=== PATIENT | male | born 1980 | race Caucasian/White ===

== ENCOUNTER 2020-08-08 14:07 | Emergency (ER) | payer MEDICARE, MEDICAID ==
[~2020-08-08] VITALS: Ht 193 cm; Wt 78.1 kg
[~2020-08-08 14:07] MED LIST: ACET325T26 PO; IBUPROFEN; MESA250C PO; MESALAMINE; OLAN15TA3 PO; OLAN5TAB3 PO; RISP3TAB24 PO; TRAZ-175 PO; TRAZ300T2 PO; TRAZADONE; ZYPREXA
--- NOTE | 2020-08-08 14:20 | NUR ---
BIB BY [facility] FROM HOME ON LEGAL 1999- "FAILURE TO CARE FOR SELF" ADMITS TO [facility] YESTERDAY PATIENT HYPERVERBAL/TANGENTIAL. QUICK REPETIVE MOVEMENTS NOTED BREATHALZER BY HEALTH INFORMATION ASSISTANT 0.000
[2020-08-08] MEDS ORDERED: LORazepam 2 MG/ML, 1ML ONE (14:30)
[2020-08-08] MEDS ORDERED: LORazepam 2 MG/ML, 1ML IM ONE (14:30)
[2020-08-08 14:35] LABS: BASOPHILS % (AUTO) 1 % (0-1); EOSINOPHILS % (AUTO) 2 % (1-7); LYMPHOCYTES % (AUTO) 29 % (22-44); MEAN CORPUSCULAR HEMOGLOBIN 31.9 pg (27.5-34.5); MEAN CORPUSCULAR HGB CONC 34.7 g/dL (33.2-36.2); MEAN PLATELET VOLUME 7.1 fL (7.4-10.4); MONOCYTES % (AUTO) 7 % (2-9); NEUTROPHILS % (AUTO) 60 % (42-75); PLATELET COUNT 331 x10^3/uL (130-400); RED BLOOD COUNT 4.16 x10^6/uL (4.38-5.82); RED CELL DISTRIBUTION WIDTH 13.4 % (9.4-14.8)
[2020-08-08 14:38] LABS: MD NO
[2020-08-08 14:47] LABS: ALBUMIN 3.4 g/dL (3.4-5.0); ANION GAP 4 mmol/L (5-15); CALCIUM 8.1 mg/dL (8.5-10.1); CHLORIDE 106 mmol/L (98-107)
[2020-08-08 14:48] LABS: SALICYLATE LEVEL < 1.7 mg/dL (2.8-20.0)
--- NOTE | 2020-08-08 14:48 | NUR ---
MEDICATED PER EMAR FOR REFUSAL TO ALLOW BLOOD DRAW/UA BELONGINGS INVENTORIED PATIENT SHOWERED SELF THEN TRANSPORTED TO ROOM 1 WHERE ROOM CONTROLLED WITH PSYCHIATRIC PRECAUTIONS REPORT TO AICHA MILAN
[2020-08-08 14:49] LABS: CREATININE 1.02 mg/dL (0.7-1.3)
--- NOTE | 2020-08-08 15:04 | NUR ---
report from aaron livingston
[2020-08-08] MEDS ORDERED: OLANZAPINE 10 MG TABLET PO SCH (15:30)
[2020-08-08] MEDS ORDERED: OLANZAPINE 10 MG TABLET ONE (15:36)
--- NOTE | 2020-08-08 15:39 | NUR ---
THROUGHPUT RN: SPOKE W/ JOSEFINAU WHO STATES THEY ARE LOOKING AT PT'S CHART AND WILL LET ER KNOW IF PT IS ACCEPTED OR DECLINED SHORTLY.
--- NOTE | 2020-08-08 15:56 | NUR ---
hilaria aldridge collected and walked to lab
--- NOTE | 2020-08-08 15:57 | NUR ---
pt aware of needing UA, pt has urinal at bedside. pt given SI precatuion food tray. sitter at doorway, all personal belongings placed in locker
--- NOTE | 2020-08-08 17:07 | NUR ---
report given to jelena MILAN. RN aware of needing Ua from pt still. pt updated on poc.
[2020-08-08 17:30] VITALS: BP 109/60
[2020-08-08 18:41] LABS: AMPHETAMINE SCREEN, URINE Positive (Negative); BARBITURATE SCREEN, URINE Negative (Negative); BENZODIAZEPINE SCREEN, URINE Negative (Negative); CANNABINOID SCREEN, URINE Positive (Negative); COCAINE SCREEN, URINE Negative (Negative); METHADONE SCREEN, URINE Negative (Negative); OPIATE SCREEN, URINE Negative (Negative)
[2020-08-08] MEDS ORDERED: LORazepam 1MG TABLET PO PRN (19:00)
[2020-08-08] MEDS ORDERED: HALOPERIDOL 5 MG TABLET PO PRN (19:00)
== END 2020-08-08 17:24 ==
LOC: ED 15:25 → UNDOADMIN 17:28 → 3E 17:28 → ED 17:52
DX: F15.159 Other stimulant abuse with stimulant-induced psychotic disorder, unspecified (principal); Z20.822 Contact with and (suspected) exposure to COVID-19; R44.2 Other hallucinations; F32.2 Major depressive disorder, single episode, severe without psychotic features
CPT/HCPCS: 36415; 80048; 80299; 80307; 80329; 82040; 85025; 87426; 96372; 99285; J2060; G0480

== ENCOUNTER 2020-08-08 16:44 | Inpatient (IN) | payer MEDICARE, MEDICAID ==
[~2020-08-08] VITALS: Ht 193 cm; Wt 77.3 kg
[2020-08-08] MEDS ORDERED: BISACODYL 10 MG SUPP PR PRN (17:00)
[2020-08-08] MEDS ORDERED: ONDANSETRON ODT 4 MG PO PRN (17:00)
[2020-08-08] MEDS ORDERED: DOCUSATE 100 MG CAPSULE PO PRN (17:00)
[2020-08-08] MEDS ORDERED: POLYETHYLENE GLYCOL 17 GM PACKET PO PRN (17:00)
[2020-08-08] MEDS ORDERED: LORazepam 1MG TABLET PO PRN ×2 (17:30→21:00)
[2020-08-08 18:33] LABS: MICROSCOPIC INDICATED
[2020-08-08] MEDS ORDERED: PLEASE ENTER HEIGHT AND WEIGHT MC SCH (19:00)
[2020-08-08] MEDS ORDERED: LORazepam 1MG TABLET ONE (19:48)
[2020-08-09] MEDS: HALOPERIDOL 5 MG TABLET PO PRN ×4 (00:06→21:09)
[2020-08-09 00:27] VITALS: BP 109/60
[2020-08-09] MEDS ORDERED: NICOTINE 14MG/24 HR PATCH.TD24 TD SCH (02:30)
[2020-08-09 07:03] LABS: CHOL/HDL RATIO 2.7; FREE T4 (FREE THYROXINE) 0.94 ng/dL (0.76-1.46); LDL/HDL RATIO 1.4 (0.5-3.0)
[2020-08-09] MEDS: LORazepam 1MG TABLET PO PRN ×3 (07:15→21:09)
[2020-08-09] MEDS: ACETAMINOPHEN 325 MG TABLET PO PRN (07:15)
[2020-08-09] MEDS: OLANZAPINE 5 MG TABLET PO PRN ×2 (07:15→12:21)
[2020-08-09 07:47] VITALS: BP 116/73
[2020-08-09] MEDS: NICOTINE 14MG/24 HR PATCH.TD24 TD SCH (08:42)
[2020-08-09] MEDS ORDERED: ENALAPRIL PO SCH (10:00)
[2020-08-09] MEDS: MESALAMINE 250 MG CAPSULE.ER PO SCH (10:31)
[2020-08-09 19:25] VITALS: BP 116/70
[2020-08-09] MEDS: OLANZAPINE 5 MG TABLET PO SCH (21:09)
[2020-08-09] MEDS: DIVALPROEX 500 MG TABLET.DR PO SCH (21:09)
[2020-08-10] MEDS: MESALAMINE 250 MG CAPSULE.ER PO SCH (07:49)
[2020-08-10] MEDS: HALOPERIDOL 5 MG TABLET PO PRN ×2 (07:49→13:18)
[2020-08-10] MEDS: LORazepam 1MG TABLET PO PRN ×2 (07:49→13:18)
[2020-08-10] MEDS: DIVALPROEX 500 MG TABLET.DR PO SCH ×2 (07:49→20:41)
[2020-08-10] MEDS: OLANZAPINE 5 MG TABLET PO SCH ×2 (07:49→20:41)
[2020-08-10 07:51] VITALS: BP 115/77
[2020-08-10] MEDS: NICOTINE 14MG/24 HR PATCH.TD24 TD SCH ×2 (08:56→18:35)
[2020-08-10 19:36] VITALS: BP 102/60
[2020-08-10] MEDS: ACETAMINOPHEN 325 MG TABLET PO PRN (20:57)
[2020-08-11 08:05] VITALS: BP 100/65
[2020-08-11] MEDS: NICOTINE 14MG/24 HR PATCH.TD24 TD SCH (08:27)
[2020-08-11] MEDS: OLANZAPINE 5 MG TABLET PO SCH ×2 (08:28→21:04)
[2020-08-11] MEDS: MESALAMINE 250 MG CAPSULE.ER PO SCH (08:29)
[2020-08-11] MEDS: HALOPERIDOL 5 MG TABLET PO PRN (08:29)
[2020-08-11] MEDS: DIVALPROEX 500 MG TABLET.DR PO SCH ×2 (08:29→21:05)
[2020-08-11] MEDS: LORazepam 1MG TABLET PO PRN (08:29)
[2020-08-11] MEDS: ACETAMINOPHEN 325 MG TABLET PO PRN (18:06)
[2020-08-11] MEDS ORDERED: ORAJEL 7GM TUBE MM PRN (19:00)
[2020-08-11 19:36] VITALS: BP 113/72
[2020-08-11] MEDS: TRAZODONE 100MG TABLET PO PRN (20:08)
[2020-08-11] MEDS: IBUPROFEN 800 MG TABLET PO PRN (20:32)
[2020-08-12] MEDS: TRAZODONE 100MG TABLET PO PRN ×2 (00:43→00:45)
[2020-08-12] MEDS: DIVALPROEX 500 MG TABLET.DR PO SCH ×2 (07:33→20:40)
[2020-08-12] MEDS: LORazepam 1MG TABLET PO PRN (07:33)
[2020-08-12] MEDS: MESALAMINE 250 MG CAPSULE.ER PO SCH (07:33)
[2020-08-12] MEDS: IBUPROFEN 800 MG TABLET PO PRN ×2 (07:33→17:42)
[2020-08-12] MEDS: NICOTINE 14MG/24 HR PATCH.TD24 TD SCH (07:34)
[2020-08-12] MEDS: OLANZAPINE 5 MG TABLET PO SCH ×2 (07:34→20:39)
[2020-08-12] MEDS: HALOPERIDOL 5 MG TABLET PO PRN (07:34)
[2020-08-12] MEDS ORDERED: DIPHENHYDRAMINE 50 MG CAPSULE ONE (11:47)
[2020-08-12] MEDS ORDERED: LORazepam 1MG TABLET PO ONE (12:00)
[2020-08-12] MEDS ORDERED: DIPHENHYDRAMINE 50 MG CAPSULE PO ONE (12:00)
[2020-08-12] MEDS ORDERED: HALOPERIDOL 5 MG TABLET PO ONE (12:00)
[2020-08-12] MEDS ORDERED: IBUPROFEN 200 MG TABLET ONE (17:26)
[2020-08-12 17:30] VITALS: BP 126/77
[2020-08-13] MEDS: IBUPROFEN 800 MG TABLET PO PRN (08:10)
[2020-08-13] MEDS: DIVALPROEX 500 MG TABLET.DR PO SCH ×2 (08:10→20:45)
[2020-08-13] MEDS: OLANZAPINE 5 MG TABLET PO SCH ×2 (08:11→20:45)
[2020-08-13] MEDS: MESALAMINE 250 MG CAPSULE.ER PO SCH (08:11)
[2020-08-13] MEDS: LORazepam 1MG TABLET PO PRN ×2 (08:11→18:22)
[2020-08-13] MEDS: HALOPERIDOL 5 MG TABLET PO PRN ×2 (08:11→18:22)
[2020-08-13] MEDS: NICOTINE 14MG/24 HR PATCH.TD24 TD SCH (08:12)
[2020-08-13 19:30] VITALS: BP 118/77
[2020-08-13] MEDS: ACETAMINOPHEN 325 MG TABLET PO PRN (20:46)
[2020-08-14 07:51] VITALS: BP 108/66
[2020-08-14] MEDS: NICOTINE 14MG/24 HR PATCH.TD24 TD SCH (08:23)
[2020-08-14] MEDS: LORazepam 1MG TABLET PO PRN (08:24)
[2020-08-14] MEDS: HALOPERIDOL 5 MG TABLET PO PRN (08:24)
[2020-08-14] MEDS: MESALAMINE 250 MG CAPSULE.ER PO SCH (08:24)
[2020-08-14] MEDS: DIVALPROEX 500 MG TABLET.DR PO SCH (08:24)
[2020-08-14] MEDS: OLANZAPINE 5 MG TABLET PO SCH (08:24)
[2020-08-14] MEDS ORDERED: NICO-486 TD (15:17)
[2020-08-14] MEDS ORDERED: TRAZ-175 PO (15:17)
[2020-08-14] MEDS ORDERED: DIVA-61 PO (15:17)
[2020-08-14] MEDS ORDERED: MESA250C PO (15:17)
[2020-08-14] MEDS ORDERED: OLAN5TAB9 PO (15:17)
== END 2020-08-14 15:55 | disposition home or self-care (01) | DRG 885 ==
LOC: 3E 18:37
PROVIDERS: ADMIT Psychiatry & Neurology Psychosomatic Medicine; ATTEND Psychiatry & Neurology Psychosomatic Medicine
DX: F25.0 Schizoaffective disorder, bipolar type (principal); K50.90 Crohn's disease, unspecified, without complications; F15.20 Other stimulant dependence, uncomplicated; F17.200 Nicotine dependence, unspecified, uncomplicated; G47.00 Insomnia, unspecified; Z88.0 Allergy status to penicillin; Z56.0 Unemployment, unspecified; Z82.49 Family history of ischemic heart disease and other diseases of the circulatory system
CPT/HCPCS: 36415; 71045; 80061; 81001; 84439; 84443; 93005